=== PATIENT | female | born 1970 | race Caucasian/White ===

== ENCOUNTER 2016-08-31 20:37 | Inpatient (IN) | payer BC ==
[2016-08-31] MEDS ORDERED: methylPREDNISolone SOD SUCC 125 MG/2 ML VIAL IVP ONE (21:20)
--- NOTE | 2016-08-31 21:21 | EDPHY ---
H & P Smoking Status: Never smoked Time Seen by Provider: 08/31/16 21:07 HPI/ROS: CHIEF COMPLAINT: Blood from ostomy bag HISTORY OF PRESENT ILLNESS: This 46-year-old woman is a patient of Nael Forrester. She had a diagnosis of stage III adenocarcinoma of the colon on review of her discharge summary dated 01/22/2016. She had last chemotherapy on August 23. She is feeling relatively well today but started having blood in her ostomy bag around 1300. Since 1814 she has had about a cup in the ostomy bag. This includes blood and clots but no other areas of bleeding. Specifically no bruising or nosebleeds. Symptoms are moderate but not associated with lightheadedness dizziness or syncope or abdominal pain or nausea or vomiting. Not better worse with anything. REVIEW OF SYSTEMS: Eye: no change in vision ENT: no sore throat Cardiac: no chest pain or syncope Pulmonary: no cough or SOB Abdomen: HPI Musculoskeletal: no back pain Skin: no rash Neuro: no headache Constitutional: no fever : no urinary symptoms A comprehensive 10 point review of systems is otherwise negative aside from elements mentioned in the history of present illness. PAST MEDICAL HISTORY: History of atrial fibrillation, stage III adenocarcinoma of the colon. History of sigmoid colectomy and right sided port Social history: Nonsmoker General Appearance: Alert and conversant, cooperative. Eyes: No scleral icterus. ENT, Mouth: Normal mucous membranes. Respiratory: Normal respiratory effort, breath sounds equal, lungs are clear to auscultation. Cardiovascular: Regular rate and rhythm. Gastrointestinal: Abdomen is soft and non tender. Juan Pablo blood and clots in the ostomy bag, no rebound or guarding. Neurological: Alert and oriented x3. Normally conversant. Face symmetric, normal moveme 1 unit nt and sensation in all extremities. Skin: No bruising or purpura. Musculoskeletal: No peripheral edema and no joint swelling. Psychiatric: Not agitated. Emergency Department course/MDM: Patient says she has previous contrast reaction but has subsequently had IV contrast for imaging studies after getting Benadryl and Solu-Medrol. Plan for i-STAT creatinine and CT imaging with acute bleeding from her ostomy. Check CBC. 2199: Hematocrit 18 and hemoglobin 6 today; hematocrit 25 on 08/23. 1 unit packed red blood cells ordered, 1 platelet pack ordered for 44k and active bleeding. 2232: Discussed with Yanet gasca hospitalist. 2235: Discussed with Neelam. 2255: Discussed with Liz Ahuja. 2315: 1 unit PRBC and platelets are infusing. Patient continues to bleed into her ostomy bag. 2nd unit ordered with visible continued active bleeding into ostomy bag. Both units and platelets given in ED. (Angus Brunson) Constitutional: Initial Vital Signs Temperature (C) 36.6 C 08/31/16 20:47 Heart Rate 95 08/31/16 20:47 Blood Pressure 129/91 H 08/31/16 20:47 O2 Sat (%) 98 08/31/16 20:47 O2 Delivery Mode Room Air Allergies/Adverse Reactions: iodine Allergy (Severe, Verified 08/31/16 20:53) Hives Home Medications: Medication Instructions Recorded Allergy Medicine 08/31/16 Ferrous Sulfate 08/31/16 Medical Decision Making Consult/Admit Bed Type: [place] [id number]; serial hct, colon prep, will see in AM - Diagnostics Imaging: CT abdomen pelvis reviewed with Gato at 10:28 p.m. shows possible mesenteric vein near ostomy but no aortoenteric fistula or other source of GI bleeding. ( Angus Brunson) Differential Diagnosis: Differential considered including but not limited to aorto enteric fistula, upper GI bleed, lower GI bleed, coagulopathy, diverticulosis. (Angus Brunson) Critical Care Time: 1231AM: I attempted to order a nuclear medicine red blood cell scan however after trying to get a hold of learning technologist 4 different times and 4 different people to see when get somebody to come in and perform this study after hours at 1 o'clock in the morning I was unsuccessful in getting a technologist available. We attempted to call multiple people multiple times we did leave messages however there is no body actual on-call after a 830 p.m. and we are unable to get a hold of anybody. (Kyle Gaytan) Critical care time spent by me, Dr. Brunson, exclusively with the care of this patient was 45 minutes, exclusive of PA or GREASE MAN time and exclusive of separate procedures. The organ system at risk was gastrointestinal/hematologic and I ordered blood products including packed red blood cells and platelets, had discussion with admitting hospitalist, patient's surgeon, marketing development specialist, oncologist; to stabilize the patient and prevent worsening of the patient's condition. (Angus Brunson) - Data Points Laboratory Results: Laboratory Results 08/31/16 21:20 08/31/16 21:20 08/31/16 08/31/16 08/31/16 21:30 21:20 21:20 WBC RBC Hgb POC Hgb 6.1 gm/dL L gm/dL (12.3-15.9) Hct POC Hct 18 % L % (35.5-47.5) MCV MCH MCHC RDW Plt Count MPV Neut % (Auto) Lymph % (Auto) Churchill % (Auto) Eos % (Auto) Baso % (Auto) Nucleat RBC Rel Count Absolute Neuts (auto) Absolute Lymphs (auto) Absolute Monos (auto) Absolute Eos (auto) Absolute Basos (auto) Absolute Nucleated RBC Immature Gran % Immature Gran # Platelet Estimate Hypochromasia Tear Drop Cells Oval Macrocytes Smear Review By PT INR APTT POC Sodium 141 mEq/L mEq/L (134-144) Sodium 137 mEq/L mEq/L (134-144) POC Potassium 3.4 mEq/L mEq/L (3.3-5.0) Potassium 3.4 mEq/L L mEq/L (3.5-5.2) POC Chloride 108 mEq/L mEq/L (96-108) Chloride 108 mEq/L mEq/L (97-110) Carbon Dioxide 21 mEq/l L mEq/l (22-31) Anion Gap 8 mEq/L mEq/L (8-16) POC BUN 20 mg/dL mg/dL (7-23) BUN 21 mg/dL mg/dL (7-23) Creatinine 0.5 mg/dL L mg/dL (0.6-1.0) POC Creatinine 0.5 mg/dL L mg/dL (0.6-1.2) Estimated GFR > 60 Glucose 102 mg/dL H mg/dL (70-100) POC Glucose 107 mg/dL H mg/dL (70-100) Calcium 8.8 mg/dL mg/dL (8.5-10.4) Patient ABO/Rh A POSITIVE Antibody Screen NEGATIVE Crossmatch IS Only See Detail 08/31/16 08/31/16 21:20 21:20 WBC 3.37 10^3/uL L 10^3/uL (3.80-9.50) RBC 1.76 10^6/uL L 10^6/uL (4.18-5.33) Hgb 6.7 g/dL L g/dL (12.6-16.3) POC Hgb Hct 18.4 % L % (38.0-47.0) POC Hct MCV 104.5 fL H fL (81.5-99.8) MCH 38.1 pg H pg (27.9-34.1) MCHC 36.4 g/dL g/dL (32.4-36.7) RDW 15.0 % % (11.5-15.2) Plt Count 44 10^3/uL L 10^3/uL (150-400) MPV 9.8 fL fL (8.7-11.7) Neut % (Auto) 58.1 % % (39.3-74.2) Lymph % (Auto) 31.5 % % (15.0-45.0) Churchill % (Auto) 5.9 % % (4.5-13.0) Eos % (Auto) 2.7 % % (0.6-7.6) Baso % (Auto) 0.6 % % (0.3-1.7) Nucleat RBC Rel Count 0.6 % H % (0.0-0.2) Absolute Neuts (auto) 1.96 10^3/uL 10^3/uL (1.70-6.50) Absolute Lymphs (auto) 1.06 10^3/uL 10^3/uL (1.00-3.00) Absolute Monos (auto) 0.20 10^3/uL L 10^3/uL (0.30-0.80) Absolute Eos (auto) 0.09 10^3/uL 10^3/uL (0.03-0.40) Absolute Basos (auto) 0.02 10^3/uL 10^3/uL (0.02-0.10) Absolute Nucleated RBC 0.02 10^3/uL H 10^3/uL (0-0.01) Immature Gran % 1.2 % H % (0.0-1.1) Immature Gran # 0.04 10^3/uL 10^3/uL (0.00-0.10) Platelet Estimate DECREASED L (ADEQ) Hypochromasia 1+ H Tear Drop Cells 1+ H Oval Macrocytes 1+ H Smear Review By Pending PT 15.6 SEC H SEC (12.0-15.0) INR 1.24 H (0.83-1.16) APTT 34.1 SEC SEC (23.0-38.0) POC Sodium Sodium POC Potassium Potassium POC Chloride Chloride Carbon Dioxide Anion Gap POC BUN BUN Creatinine POC Creatinine Estimated GFR Glucose POC Glucose Calcium Patient ABO/Rh Antibody Screen Crossmatch IS Only Medications Given: Discontinued Medications Diphenhydramine HCl (Benadryl Injection) 50 mg IVP EDNOW ONE Stop: 08/31/16 21:21 Last Admin: 08/31/16 21:45 Dose: 50 mg Methylprednisolone Sodium Succinate (Solu-Medrol) 125 mg IVP EDNOW ONE Stop: 08/31/16 21:21 Last Admin: 08/31/16 21:45 Dose: 125 mg Point of Care Test Results: 08/31/16 21:30 POC Sodium 141 POC Potassium 3.4 POC Chloride 108 POC BUN 20 POC Creatinine 0.5 L POC Glucose 107 H Departure - Departure Disposition: [facility] Inpatient Acute Clinical Impression: Acute lower GI bleeding Anemia Qualifiers: Anemia type: unspecified type Qualified Code(s): D64.9 - Anemia, unspecified Condition: Serious
[2016-08-31] MEDS ORDERED: IOPAMIDOL (ISOVUE-300) 100 ML BTL IV ONE (21:41)
[2016-08-31 21:46] LABS: % IMMATURE GRANULYOCYTES 1.2 % (0.0-1.1); ABSOLUTE IMMATURE GRANULOCYTES 0.04 10^3/uL (0.00-0.10); ABSOLUTE NRBC COUNT 0.02 10^3/uL (0-0.01); ADD DIFF? NO; ADD MORPH? YES; ADD SCAN? NO; ATYPICAL LYMPHOCYTE FLAG 60 (0-99); FRAGMENT RBC FLAG 0 (0-99); HEMATOCRIT 18.4 % (38.0-47.0); LEFT SHIFT FLG 0 (0-99); LIPEMIA HEMOLYSIS FLAG 90 (0-99); MEAN CELL HEMOGLOBIN 38.1 pg (27.9-34.1); MEAN CELL HEMOGLOBIN CONCENTR. 36.4 g/dL (32.4-36.7); MEAN CELL VOLUME 104.5 fL (81.5-99.8); MEAN PLATELET VOLUME 9.8 fL (8.7-11.7); NRBC-AUTO% 0.6 % (0.0-0.2); PLATELET CLUMPS FLAG 20 (0-99); RED BLOOD CELL COUNT 1.76 10^6/uL (4.18-5.33)
[2016-08-31 21:49] LABS: HEMOGLOBIN 6.7 g/dL (12.6-16.3); PLATELET COUNT 44 10^3/uL (150-400)
[2016-08-31 21:52] LABS: INR 1.24 (0.83-1.16); PROTIME(PATIENT) 15.6 SEC (12.0-15.0)
[2016-08-31 21:53] LABS: APTT 34.1 SEC (23.0-38.0)
[2016-08-31 21:57] LABS: ANION GAP 8 mEq/L (8-16); CALCIUM 8.8 mg/dL (8.5-10.4); CARBON DIOXIDE 21 mEq/l (22-31); CHLORIDE 108 mEq/L (97-110); CREATININE 0.5 mg/dL (0.6-1.0); GLOMERULAR FILTRATION RATE > 60; GLUCOSE 102 mg/dL (70-100); POTASSIUM 3.4 mEq/L (3.5-5.2); SODIUM 137 mEq/L (134-144)
[2016-08-31 22:25] LABS: PLATELET ESTIMATE DECREASED (ADEQ)
[2016-08-31 22:26] LABS: HYPOCHROMIA 1+; MACROCYTES 1+
[2016-08-31] MEDS ORDERED: NS 1,000 ML IV SCH (23:45)
[2016-08-31] MEDS ORDERED: ONDANSETRON 4 MG/2 ML VIAL IVP PRN (23:52)
[2016-08-31] MEDS ORDERED: ACETAMINOPHEN 325 MG TAB PO PRN (23:52)
[2016-08-31] MEDS ORDERED: HYDROmorphONE/DILAUDID 1 MG/ML SYR IVP PRN (23:52)
[2016-08-31] MEDS ORDERED: ONDANSETRON DISINTEGRATING 4 MG TAB PO PRN (23:52)
[2016-08-31] MEDS ORDERED: PROMETHAZINE HCL 25 MG/ML INJ IVP PRN (23:52)
[2016-08-31] MEDS ORDERED: oxyCODONE IR 5 MG TAB PO PRN (23:52)
[2016-08-31] MEDS ORDERED: LORazepam 2 MG/ML INJ IVP PRN (23:52)
--- NOTE | 2016-09-01 01:06 | GCON ---
[f rep st] CONSULTATION HISTORY OF PRESENT ILLNESS: This is a 46-year-old, who presents to the hospital after having a GI bleed, maroon-colored blood out of the ostomy since about 5 or 6 o'clock this evening. The patient is known to me from previous colon resection for an obstructing sigmoid colon cancer, complicated by anastomotic leak, need for diverting loop ostomy. She has undergone 12 cycles of FOLFOX. Most current hemoglobin is 6.7. She is pancytopenic with a white blood cell count of 3.37 and a platelet count of 44. Other indices show BUN of 21 and creatinine of 0.5, which does not indicate an upper GI bleed. Potassium is 3.4, sodium is 137, chloride is 108, bicarb is 21, mildly acidotic. The patient feels well. She has not had any specific complaints except for mild anorexia, neuropathy, which are side effects from her chemotherapy medications. She is currently on FOLFOX and is tolerating that well. She has a Port-A-Cath placed in her right upper chest which is being used for chemotherapy. CT scan today, personally reviewed with Dr. Hoskins, demonstrates prominent mesenteric vessels and possible inflammation around the gallbladder as well as fluid in the pelvis without hounsfeld units suggestive of blood. PMSFH: reviewed unchanged from prior ROS significant for blood all others reviewed and negative PHYSICAL EXAMINATION: GENERAL: She is alert, oriented to person, place, and time. HEENT: Sclerae anicteric. Oropharynx is moist. LUNGS: Clear. HEART: Regular heart tones. ABDOMEN: Softly distended. Normoactive bowel sounds. She has blood, which is clotting now, in her ostomy bag. She emptied approximately 200 mL since she has been here in the emergency room. She has received 1 unit of packed red blood cells and 1 unit of platelets. EXTREMITIES : Without edema. She has neuropathy but adequate distal revascularization. SKIN: She has no rashes. IMPRESSION AND PLAN: Gastrointestinal bleed. Thrombocytopenia . Unsure of the source. Recommend endoscopy tagged red blood cell scan if unavailable. I have discussed this with Dr. Holt. I will follow up with her in the morning. If the patient has continued bleeding and tagged cell scan is not informative, endoscopy should be performed to ensure there is no active source of bleeding that can be controlled by endoscopic means. As for surgery, no surgery at this point until the patient is resuscitated with plts and pRBCs. The patient has been informed of the risks, benefits, and alternatives. All questions were addressed. /[id number]/MODL MTDD
[2016-09-01 02:12] LABS: % IMMATURE GRANULYOCYTES 1.3 % (0.0-1.1); ABSOLUTE IMMATURE GRANULOCYTES 0.03 10^3/uL (0.00-0.10); ADD DIFF? NO; ADD MORPH? NO; ADD SCAN? NO; ATYPICAL LYMPHOCYTE FLAG 30 (0-99); FRAGMENT RBC FLAG 0 (0-99); HEMOGLOBIN 8.4 g/dL (12.6-16.3); LEFT SHIFT FLG 0 (0-99); LIPEMIA HEMOLYSIS FLAG 90 (0-99); MEAN CELL HEMOGLOBIN 35.4 pg (27.9-34.1); MEAN CELL HEMOGLOBIN CONCENTR. 36.5 g/dL (32.4-36.7); MEAN PLATELET VOLUME 8.9 fL (8.7-11.7); PLATELET CLUMPS FLAG 0 (0-99); PLATELET COUNT 56 10^3/uL (150-400); RED BLOOD CELL COUNT 2.37 10^6/uL (4.18-5.33); RED CELL DISTRIBUTION WIDTH 16.4 % (11.5-15.2)
[2016-09-01] MEDS ORDERED: METOCLOPRAMIDE 10 MG/2 ML VIAL IVP PRN (02:55)
[2016-09-01] MEDS ORDERED: GOLYTELY 4000 ML BTL PO ONE ×2 (02:55→02:56)
--- NOTE | 2016-09-01 03:57 | GHP ---
[f rep st] HISTORY AND PHYSICAL DATE OF ADMISSION: 08/31/2016 CHIEF COMPLAINT: Bleeding into her ostomy. HISTORY: This is a 46-year-old female with a past medical history of stage III adenocarcinoma of th e colon status post partial colectomy with postoperative course complicated by anastomotic breakdown requiring resection and colostomy placement, who presents after noting that she has been passing la rge amounts of blood and blood clots into her ostomy over the last day. She notes despite that, she has felt quite well in the last 24-48 hours; in fact, better than she has felt in a long time. She recently completed chemotherapy on August 23 and has been recovering from that. She notes she has had some issues with peripheral neuropathy and generalized fatigue and weakness, but this actual ly has been better in the last couple of days. She denies any lightheadedness or dizziness. She de nies any abdominal pain or cramping. She does not take routinely aspirin or NSAIDs. She does not h ave a history of GERD. She notes she has at least emptied 1-1/2 ostomy bags full of blood prior to coming to the ER and another one since arrival. This has never happened in the past. PAST MEDICAL HISTORY: 1. Stage IIIC adenocarcinoma of the colon diagnosed in November of 2015 when patient presented with bow el obstruction. Patient is status post surgical intervention, as well as chemotherapy. 2. Paroxysmal AFib with RVR. 3. Chronic anemia. 4. History of peritonitis and sepsis status post anastomotic leak and fecal peritonitis. 5. Migraine. 6. Peripheral neuropathy. 7. Thrush. PAST SURGICAL HISTORY: 1. Partial colectomy. 2. Anastomotic leak resection and colostomy placement. 3. Orthopedic surgeries. FAMILY HISTORY: Father with metastatic colon cancer. SOCIAL HISTORY: Patient is . She has 3 children. She is originally from [place]. She cesilia es alcohol or tobacco use. REVIEW OF SYSTEMS: 10-point review of systems obtained and negative, except as per HPI. HOME MEDICATIONS: Iron and an allergy medication. ALLERGIES: Iodine. PHYSICAL EXAMINATION: VITAL SIGNS: BP 124/88, heart rate 85, respiratory rate 16, O2 sat is 97% on room air. Temperature is 36.8. GENERAL APPEARANCE: Well-developed/well-nourished female. She is awake and alert. She is in no acute distress. EYES: Anicteric. HEENT: Oropharynx clear. CARDI OVASCULAR: RRR, no MRG. PULMONARY: CTA bilaterally to anterior exam. ABDOMEN: Soft, nontender, bowel sounds present, ostomy bag in the left middle quadrant is full of what appears to be brown sto ol. EXTREMITIES: No clubbing, cyanosis, or edema. SKIN: Warm, dry, well perfused. NEURO/PSYCH: Oriented and appropriate, pleasant. CLINICAL DATA: Labs reviewed. Significant for a white blood cell count of 3.37, hemoglobin of 6.7, hematocrit of 18.4, platelets of 44. INR is 1.2. Chemistry notable for a potassium of 3.4, creati nine is 0.5. Abdominal CT shows question of a mesenteric vessel extending into the ostomy, as well as what is lik betty small metastatic deposit in the right lobe of the liver. Interval development of gallbladder wa ll thickening and pericholecystic fluid and mild splenomegaly and small amount of ascites. ASSESSMENT/PLAN: This is a 46-year-old female with past medical history of stage III adenocarcinoma of the colon, presenting with gastrointestinal bleed. 1. Gastrointestinal bleed. Unclear source, but patient is passing what appears to be bright red bl ood from her colostomy. Dr. Richter of General Surgery has been consulted and has evaluated the pat ient in the ER. He recommends a tagged red blood cell study, as well as endoscopy. GI also has bee elisa consulted with plans for likely upper and lower endoscopy in the morning. She has been transfused 2 units of packed red blood cells. The bleeding does seem to have slowed down by the appearance of the stool in her ostomy bag most recently. 2. Acute blood loss anemia in the setting of above. Again, status post transfusion of 2 units. H and H are being trended. 3. Stage III adenocarcinoma of the colon. Again, patient recently completed chemotherapy with 12 c ycles of FOLFOX. She has also undergone surgical resection. She is followed by Dr. Forrester, as court dowell as her surgeon, Dr. Richter. Oncology is aware of her admission and will see her while in-house. 4. Hypokalemia. Will replete. 5. Pericholecystic fluid without any right upper quadrant pain or signs and symptoms of cholecystit is. We will check liver function panel in the morning. 6. History of atrial fibrillation. Monitoring on telemetry. Currently in sinus rhythm. 7. Disposition. Inpatient status. Patient is presenting with high-risk initial complaints of pablito re anemia requiring urgent evaluation and possible surgical intervention. The patient is new to my care. Old records reviewed and summarized as per HPI and past medical hist ory. Care plan reviewed with ER physician, Dr. Richter of General Surgery. /[id number]/MODL
[2016-09-01 06:15] LABS: % IMMATURE GRANULYOCYTES 0.5 % (0.0-1.1); ABSOLUTE IMMATURE GRANULOCYTES 0.01 10^3/uL (0.00-0.10); ADD DIFF? NO; ADD MORPH? NO; ADD SCAN? NO; ATYPICAL LYMPHOCYTE FLAG 20 (0-99); FRAGMENT RBC FLAG 0 (0-99); HEMATOCRIT 23.9 % (38.0-47.0); HEMOGLOBIN 8.8 g/dL (12.6-16.3); LEFT SHIFT FLG 0 (0-99); LIPEMIA HEMOLYSIS FLAG 90 (0-99); MEAN CELL HEMOGLOBIN 36.2 pg (27.9-34.1); MEAN CELL HEMOGLOBIN CONCENTR. 36.8 g/dL (32.4-36.7); MEAN CELL VOLUME 98.4 fL (81.5-99.8); MEAN PLATELET VOLUME 9.8 fL (8.7-11.7); PLATELET CLUMPS FLAG 10 (0-99); PLATELET COUNT 59 10^3/uL (150-400); RED BLOOD CELL COUNT 2.43 10^6/uL (4.18-5.33); RED CELL DISTRIBUTION WIDTH 16.7 % (11.5-15.2)
[2016-09-01 06:25] LABS: ALANINE AMINOTRANSFERASE 51 IU/L (9-52); ALBUMIN 3.3 g/dL (3.5-5.0); ALKALINE PHOSPHATASE 75 IU/L (38-126); ANION GAP 6 mEq/L (8-16); ASPARTATE AMINOTRANSFERASE 62 IU/L (14-46); BILIRUBIN-CONJUGATED 0.7 mg/dL (0.0-0.5); BILIRUBIN-UNCONJUGATED 3.3 mg/dL (0.0-1.1); CALCIUM 8.8 mg/dL (8.5-10.4); CARBON DIOXIDE 21 mEq/l (22-31); CHLORIDE 112 mEq/L (97-110); CREATININE 0.5 mg/dL (0.6-1.0); GLOMERULAR FILTRATION RATE > 60; GLUCOSE 154 mg/dL (70-100); MAGNESIUM 1.6 mg/dL (1.6-2.3); POTASSIUM 3.7 mEq/L (3.5-5.2); SODIUM 139 mEq/L (134-144); TOTAL PROTEIN 5.9 g/dL (6.3-8.2)
[2016-09-01 12:05] VITALS: RESP 16
[2016-09-01] MEDS ORDERED: MIDAZOLAM 2 MG/2 ML VIAL ONE ×3 (14:58→15:49)
[2016-09-01] MEDS ORDERED: fentaNYL 100 MCG/2 ML INJ ONE ×3 (14:58→15:33)
--- NOTE | 2016-09-01 16:23 | GCON ---
[f rep st] CONSULTATION GI INPATIENT CONSULTATION. DATE OF CONSULTATION: 09/01/2016 I was kindly requested to see patient by Dr. Angus Brunson in consultation for chief complaint of gastrointestinal bleeding. She is a 46-year-old, white female, who began to have the above yesterday. She had bright red blood in her ostomy bag. There were also some clots. With the above, she denies abdominal pain, nausea, vomiting, weakness. She presented to the emergency department, was found to have a hematocrit of 18.4%, and was admitted to the hospital. She has a history of colon cancer with surgical resection for this in 2016. This was complicated by an anastomotic leak, peritonitis, and a prolonged hospital stay, with further surgeries, etc. She has a colostomy. She has a father who had metastatic colon cancer. She has 3 children. She recently had chemotherapy. She has used some Aleve after chemotherapy. PAST MEDICAL HISTORY: 1. As above. 2. History of atrial fibrillation related to hospitalization. 3. Otherwise, noncontributory. OUTPATIENT MEDICATIONS: Include the above. INPATIENT MEDICATIONS: Include receiving some blood. ALLERGIES: Include iodine. SOCIAL HISTORY: She is . Her 's name is David, telephone #. FAMILY HISTORY: As above. REVIEW OF SYSTEMS: Positive pertinent review of systems as per my HPI;otherwise , a complete review of systems is negative. PHYSICAL EXAM: CONSTITUTIONAL: Nontoxic-appearing, pleasant woman. SKIN: Warm, dry. HEENT: Eyes: Pupils equal, round, reactive to light and accommodation. Ear, nose, mouth and throat: Oropharynx without masses, moist mucosa. CARDIOVASCULAR: Normal S2, normal PMI. RESPIRATORY: Pulmonary clear to auscultation and percussion anteriorly. LUNGS: Clear to auscultation and percussion anteriorly. GASTROINTESTINAL: Stoma in place. ABDOMEN: Soft. NEUROLOGIC: Grossly nonfocal, with cranial nerves grossly intact. PSYCHIATRIC : Orientation, insight appropriate. MUSCULOSKELETAL: Strength grossly normal throughout, normal station. LABORATORIES: Include a CT of the abdomen and pelvis with IV contrast which shows a probable mesenteric vein extending into the ostomy, increased in size from prior scans. Small amount of ascites. AST 62, with a total bilirubin of 4 , almost all unconjugated. Prothrombin time 15.6 with an INR 1.24. White count on admission 3.37, today 1.94. Hematocrit 18.4%. Now, after blood, 23%, and 23.9% over the last 2 values. Platelet count on admission, 44,000. After 10 units of random donor platelets, 59,000. Normal electrolytes. RBC scan pending. ASSESSMENT: Gastrointestinal bleeding. Almost certainly lower in source. Suspect either from her ostomy or her remaining colon. A brisk upper GI bleed mimicking a lower bleed is possible, especially with her quite low hematocrit, NSAID use and that she only has a partial amount of colon, but less likely. PLAN: 1. Colon prep. 2. Upper endoscopy, colonoscopy via the ostomy at the same sitting. 3. Serial hematocrits, transfuse blood as needed. 4. Of note, suspect her elevated unconjugated bilirubin is either Gilbert's syndrome or due to hemolysis only. 5. In the future, as an outpatient, I will arrange for her to see Dr. Kelvin Sandoval, a specialist in hereditary colon cancer syndromes, considering her young age, her father's history, and that she has 3 children. 6. Otherwise, further management depending on the above. Thank you for allowing me to help in the care of this patient. /[id number]/MODL MTDD
[2016-09-01] MEDS ORDERED: PANTOPRAZOLE SODIUM 40 MG TAB PO SCH (16:30)
[2016-09-01 17:10] VITALS: BP 108/64; PULSE 80; TEMP 98.4; O2SAT 95
--- NOTE | 2016-09-01 17:22 | GPN ---
[f rep st] PROCEDURE NOTE DATE OF PROCEDURE: 09/01/2016 PROCEDURES: Upper endoscopy with biopsy, colonoscopy with ablation. INDICATIONS AND PRE-PROCEDURE DIAGNOSIS: Gastrointestinal bleeding. POSTPROCEDURE DIAGNOSES: 1. Upper endoscopy. Normal, except for some superficial duodenal erosions, friable. Doubt the cause of her bleeding. 2. Colonoscopy via her ostomy. a. 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 Eradicated with argon and BICAP therapy. No further active bleeding otherwise. PREMEDICATION: Fentanyl 250 mcg IV, fentanyl 9 mg IV. Of note, the time from IV sedation until procedure end was 46 minutes. COMPLICATIONS: None. FINDINGS: After informed consent was obtained, the patient was placed in left lateral decubitus position. Video upper endoscope was placed under direct visualization and advanced. Esophagus was normal. Stomach was normal. Duodenal bulb and 1st portion had some superficial erosions, approximately 0.5 cm in size, with some friability. However, no active bleeding. Biopsies done of the antrum and cardia of the stomach for H pylori. The patient's gurney was then turned around. A digital exam was done of her ostomy with my pinky and index finger. The initial 2 cm of her ostomy is normal. Then, there is a mild- to-moderate stricture. This was dilated with my pinky and index finger. Then, a pediatric colonoscope was placed via the ostomy and advanced. There was only mild resistance going by this stricture. The colonoscope was advanced to the cecum, where the ileocecal valve was seen. In the cecum, there were the above AVMs. There was some oozing of blood. These were treated with a combination of argon plasma coagulation, set at the recommended right colon settings on ERBE , approximately 10 pulses, several seconds each. Then, a 7-Yi BICAP probe was used, to treat the residual angioectasias, again using the recommended setting on ERBE, approximately another 10 pulses, several seconds each. Good eradication was seen, with no active bleeding at the procedure's end. Upon slow withdrawal, no other abnormalities or blood was seen. Of note, no vascular or venous abnormalities were seen at the ostomy, such as a mesenteric vein, etc. IMPRESSION: I suspect her gastrointestinal bleeding was almost certainly due to the above cecal arteriovenous malformations. In turn, suspect this was exacerbated by her low platelet count. Eradicated as above. No further bleeding, and relatively low risk of significant repeat bleeding. PLAN: 1. Will let her eat. 2. Buff cap IV. 3. Please see other recommendations in my consult note from today. 4. Will place her on a proton pump inhibitor daily. From a GI standpoint, okay to discharge home. Upon discharge, would recommend: 1. A generic proton pump inhibitor for 1 month. Okay to continue using Aleve post chemotherapy, if she wishes, but she also could try Tylenol, narcotic as needed, etc. 2. Follow up with Oncology. While she has a low platelet count in a post chemotherapy state, she may have some return of oozing from these AVMs in the future. If so, I would recommend outpatient transfusion of blood as needed. 3. Would recommend iron replacement therapy long-term. I will sign off. I will follow up on her biopsies for H pylori, but suspect will be negative. Otherwise, please let me know if I can be of further help in the future. /[id number]/MODL MTDD
--- NOTE | 2016-09-01 18:07 | PDDCSUM ---
Discharge Summary Discharge Summary: DISCHARGE SUMMARY FOLLOW-UP ITEMS: CBC on 09/05/2016 DATE OF ADMISSION: 09/01/2016 DATE OF DISCHARGE: 09/01/2016 DISCHARGE DIAGNOSES: 1. Acute lower gastrointestinal hemorrhage 2. Acute blood loss anemia 3. Cecal arteriovenous malformation 4. Pancytopenia secondary to chemotherapy 5. Adenocarcinoma of the colon 6. Suspected Gilbert's syndrome CONSULTATIONS: Gastroenterology PROCEDURES / IMAGING: Endoscopy by Dr. Ambrose CHIEF COMPLAINT: Acute blood in ostomy bag SUBJECTIVE: Patient is feeling well at time of discharge, she is requesting to be discharged home at this time PHYSICAL EXAM ON DISCHARGE: Systolic blood pressure 120, heart rate 80s, afebrile, satting well on room air , abdomen is soft nontender nondistended, bowel sounds are present, ostomy bag demonstrates no bloody material LABS ON DISCHARGE: Hemoglobin 8.8, platelet count 19459, MCV 98, creatinine 0.5, total bilirubin 4 HOSPITAL COURSE BY PROBLEM: 1. Acute lower gastrointestinal hemorrhage. Patient presented with a GI bleed from the cecum resulting in anemia. She required transfusion of red blood cells. This is stabilized with intervention as outlined below. She should remain on oral iron therapy as an outpatient, increase to twice daily. 2. Acute blood-loss anemia. Evidenced by hemoglobin level of 6.7 in the setting of GI blood loss. She received 2 units of packed red blood cells. Discharge hemoglobin level is 8.8. 3. Cecal arterial venous malformation. The patient underwent endoscopy by Dr. Ambrose, he noted numerous bleeding cecal AVMs, the bleeding was stopped with argon. These AVMs most likely bleeding in the setting of thrombocytopenia. He has recommended a proton pump inhibitor x1 month. He is also recommended discontinuing use of Aleve but if patient does require this after chemotherapy the risks may be worth the potential benefit. Recommend attempting use of Tylenol in lieu of this medication. He also recommends that the patient have a repeat CBC an outpatient platelet monitoring through [facility] with transfusions if needed if there is notable bleeding after subsequent chemotherapy rounds. 4. Pancytopenia secondary to chemotherapy. This is the cause of patient's thrombocytopenia. Her platelet count should be monitored as outpatient. Transfuse platelets as needed if evidence of bleeding. 5. Suspected Gilbert syndrome. Hyperbilirubinemia, no evidence of biliary distention on CT of the abdomen. DISCHARGE MEDICATIONS: Please see official discharge medication reconciliation sheet in chart , iron twice daily, pantoprazole 40 mg once daily. DISCHARGE INSTRUCTIONS: Please follow up with Dr. Sandoval in the next several weeks and have repeat CBC performed next Monday with results to Dr. Forrester.
--- NOTE | 2016-09-01 19:19 | GCON ---
[f rep st] CONSULTATION ONCOLOGY CONSULTATION NOTE HISTORY OF PRESENT ILLNESS: The patient is a very pleasant 46-year-old female who was diagnosed wit h a stage IIIC (T3 N2b) adenocarcinoma of the sigmoid colon in December of 2015. She presented with abdo javier pain and on presentation had a spiculated lesion in the sigmoid colon. She underwent resection and had perforation to the subserosal adipose tissue and also had lymphovascular invasion as well a s perineural invasion. 12 of 14 lymph nodes were involved. There was no evidence of distant metastas es. The patient is followed by Dr. Forrester and just completed a full 12 cycles of adjuvant FOLFOX with t he last treatment being done on August 23. The treatment was complicated by neuropathy. The joe ent presented to the emergency room this morning after passing large amounts of blood and clot into her ostomy. She denied any lightheadedness or dizziness. She does not take aspirin or NSAIDs. She em ptied at least 1-1/2 ostomy bags full of blood prior to her arrival in the ER at 3 a.m. Hemoglobin h as been running around 9 or 10 in the last few months of chemotherapy. When she presented to the ER, hemoglobin was 6.7. She was transfused, and this morning the hemoglobin was up to 8.8. Also of note , her white blood cell count was 1.94, 56% neutrophils, with an absolute neutrophil count of 1.6. Pl atelet count is 59,000. The patient did receive Neulasta on August 25. The patient was seen in consultation by Dr. Luis Richter, as well as Dr. Ambrose. She is just returning from the endoscopy suite, and is very sleepy. She denies any new symptoms. PAST MEDICAL HISTORY: 1. History of intermittent atrial fibrillation. 2. Chemotherapy-induced anemia. 3. History of peritonitis and sepsis, status post anastomotic leak and fecal peritonitis. 4. Migraine. 5. Peripheral neuropathy. PAST SURGICAL HISTORY: 1. Partial colectomy. 2. Repair of anastomotic leak with diverting colostomy. SOCIAL HISTORY: She does not smoke or drink. She is employed and works in retail sales. FAMILY HISTORY: Notable for her father having metastatic colon cancer. REVIEW OF SYSTEMS: Unable to be obtained as the patient is very sedated. PHYSICAL EXAMINATION: GENERAL: She is quite sleepy-appearing, but appears comfortable. VITAL SIGNS: Blood pressure 130/88, heart rate 75, O2 saturation 99% on room air. She is afebrile. HEENT: Pupils equal. Sclerae anicteric. LUNGS: Clear anteriorly. HEART: Regular rate. ABDOMEN: Soft, nontender. S he has an ostomy bag. EXTREMITIES: No edema. LABORATORY DATA: Hemoglobin 8.8, platelets 59. INR 1.2, PTT 34. Comprehensive metabolic panel unrem arkable other than bilirubin of 4.0, with conjugated bilirubin of 0.7. IMPRESSION: 1. This is a 46-year-old female with history of stage IIIC adenocarcinoma of the colon who has just recently completed 12 cycles of adjuvant FOLFOX. She is currently day 11 cycle 12. She presents wit h a lower gastrointestinal bleed and has just undergone endoscopy with Dr. Ambrose. I am not aware of t he results at this time. She is hemodynamically stable. While she has pancytopenia likely related to the chemotherapy, in part, her current platelet count is 59,000. There is no indication at this hank e for platelet transfusion. While she has leukopenia, she is not absolutely neutropenic and did rece russ Mann. 2. I will continue to follow along with you. /[id number]/MODL
== END 2016-09-01 18:05 | disposition home or self-care (01) | DRG 299 ==
LOC: F3E 09-01 13:20
PROVIDERS: ADMIT Internal Medicine; ATTEND Internal Medicine
PROC: 30233N1 Transfusion of Nonautologous Red Blood Cells into Peripheral Vein, Percutaneous Approach (ICD-10-PCS; 2016-08-31)
PROC: 30233R1 Transfusion of Nonautologous Platelets into Peripheral Vein, Percutaneous Approach (ICD-10-PCS; 2016-08-31)
PROC: 0W3P8ZZ Control Bleeding in Gastrointestinal Tract, Via Natural or Artificial Opening Endoscopic (ICD-10-PCS; principal; 2016-09-01 15:00)
DX: Q27.33 Arteriovenous malformation of digestive system vessel (principal); D61.810 Antineoplastic chemotherapy induced pancytopenia; K92.2 Gastrointestinal hemorrhage, unspecified; D62 Acute posthemorrhagic anemia; C18.7 Malignant neoplasm of sigmoid colon; E87.6 Hypokalemia; I48.91 Unspecified atrial fibrillation; E80.4 Gilbert syndrome; G62.9 Polyneuropathy, unspecified; Z93.3 Colostomy status
CPT/HCPCS: 82947-QW; 96374; J1200; J2250; J3010; P9016; P9035; Q9967

== ENCOUNTER 2016-10-11 10:16 | Inpatient (IN) | payer BC ==
[2016-10-11] MEDS ORDERED: ERTAPENEM 1 GM in NS 100 ML IV ONE (11:45)
[2016-10-11] MEDS ORDERED: fentaNYL 100 MCG/2 ML INJ ONE ×3 (11:51→16:52)
[2016-10-11] MEDS ORDERED: DEXAMETHASONE 4 MG/ML VIAL ONE (11:51)
[2016-10-11] MEDS ORDERED: ROCURONIUM 50 MG/5 ML VIAL ONE ×2 (11:51→11:53)
[2016-10-11] MEDS ORDERED: LIDOCAINE 2% 5 ML SDV ONE (11:51)
[2016-10-11] MEDS ORDERED: ONDANSETRON 4 MG/2 ML VIAL ONE (11:51)
[2016-10-11] MEDS ORDERED: KETOROLAC 30 MG/1 ML SDV ONE (11:51)
[2016-10-11] MEDS ORDERED: PROPOFOL 200 MG/20 ML VIAL ONE (11:53)
[2016-10-11] MEDS ORDERED: BUPIVACAINE 0.5% 30 ML SDV ONE (12:44)
[2016-10-11] MEDS ORDERED: HYDROmorphONE/DILAUDID 2 MG/ML INJ ONE (13:49)
[2016-10-11 14:25] LABS: HEMATOCRIT 26.1 % (38.0-47.0); HEMOGLOBIN 8.7 g/dL (12.6-16.3)
[2016-10-11] MEDS ORDERED: SUGAMMADEX SODIUM 200 MG/2 ML VIAL IVP ONE ×2 (15:35→15:45)
[2016-10-11] MEDS ORDERED: SUGAMMADEX SODIUM 500 MG/5 ML VIAL IVP ONE (15:46)
[2016-10-11] MEDS ORDERED: ONDANSETRON 4 MG/2 ML VIAL IVP PRN (16:02)
--- NOTE | 2016-10-11 16:02 | POSTOPPROG ---
Post Op Note Date of Operation: 10/11/16 Surgeon: Luis Richter Advanced Registered Nurse: Dean Ahuja Anesthesia: GET(General Endotracheal) Pre-op Diagnosis: Colon ca -colostomy Post-op Diagnosis: same Procedure: Colostomy takedown Findings: Dense adhesiona Inf/Abcess present in the surg proc area at time of surgery?: No EBL: 500-1000 Total fluids administered: 1.5L Complications: none Specimen(s): colostomy
[2016-10-11] MEDS ORDERED: HYDROmorphONE/DILAUDID 1 MG/ML SYR ONE (16:52)
[2016-10-11] MEDS: KETOROLAC 15 MG/1 ML SDV IVP SCH ×2 (17:56→23:37)
[2016-10-11] MEDS: D5W 1/2 NS W/ 20 KCl/L 1,000 ML IV SCH ×2 (17:59→23:37)
[2016-10-11] MEDS: GABAPENTIN 300 MG CAP PO SCH ×2 (19:09→21:31)
[2016-10-12 05:29] LABS: HEMATOCRIT 18.8 % (38.0-47.0)
[2016-10-12 05:31] LABS: ANION GAP 5 mEq/L (8-16); CARBON DIOXIDE 21 mEq/l (22-31); CHLORIDE 111 mEq/L (97-110); CREATININE 0.5 mg/dL (0.6-1.0); GLOMERULAR FILTRATION RATE > 60; GLUCOSE 110 mg/dL (70-100); POTASSIUM 4.3 mEq/L (3.5-5.2); SODIUM 137 mEq/L (134-144)
[2016-10-12 06:00] LABS: HEMOGLOBIN 6.3 g/dL (12.6-16.3)
[2016-10-12] MEDS: KETOROLAC 15 MG/1 ML SDV IVP SCH ×4 (06:17→22:53)
--- NOTE | 2016-10-12 07:27 | GOP ---
[f rep st] OPERATIVE REPORT DATE OF OPERATION: SURGEON: Luis Richter MD FINISHING SUPERVISOR PLASTIC SHEETS: Dean Ahuja MD. ANESTHESIA: General endotracheal anesthesia is used. ANESTHESIOLOGIST: West Gray MD PREOPERATIVE DIAGNOSIS: Colon cancer, colostomy and Port-A-Cath. POSTOPERATIVE DIAGNOSIS: Colon cancer, colostomy and Port-A-Cath. PROCEDURE PERFORMED: Removal of right chest Port-A-Cath, colostomy takedown with end-to-end descend ing colon to rectal anastomosis and splenic flexure takedown, extensive lysis of adhesions. FINDINGS: SPECIMENS: Colostomy to permanent pathology. ESTIMATED BLOOD LOSS: Approximately 800 cc. INDICATIONS: This is a 46-year-old woman with a history of colon cancer, status post colectomy with leak and need for diverting end colostomy. DESCRIPTION OF PROCEDURE: The patient was brought into the operating room after induction of endotr acheal anesthesia in a supine position. Her chest, abdomen and pelvis were prepped with chlorhexidi ne and draped sterilely. A time-out procedure was then performed according to the institutional sta ndards. Invanz was given IV prior to surgical starting and the surgery commenced. Initially, the r ight port is taken out by making an incision over the previously incised area, excising the port und er sharp dissection and then closing the incision in 2 layered fashion using 4-0 Vicryl. The patien t was then placed in lithotomy position and laparotomy is made. Extensive lysis of adhesions were r equired to re-enter the abdomen and the small bowel interloop adhesions were taken down with sharp d issection. The rectal stump was identified with 2 Prolene sutures at the lateral aspects of the rec ever. Two ovarian cysts were identified and aspirated. The colocolostomy was then brought into the field of dissection. Circumferential dissection in the abdomen is performed and then the colostomy was taken down from the outside at the skin level. It is passed through the fascia and after adequa te mobilization laterally, there was not enough colon to reach the pelvis, therefore, splenic flexur e takedown was then performed. The colon was sized with an EEA stapler. A 29 stapler was used to p erform the anastomosis. The proximal colon is then pursestringed around the anvil and an end-to-end anastomosis performed after mobilization of the peritoneal reflection of the rectum to allow the st apler to make the turn. Airtight anastomosis was found. Hemostasis was assured. The bowel was run . No signs of enterotomies or any other injuries and a single serosal tear was reapproximated using 3-0 Polysorb suture. The dense adhesions that were noted through the anterior abdominal wall and t o the sidewall were all taken down in just under 3 hours, but this was fairly extensive and required tedious careful dissection. After insuring hemostasis, needle, instrument and sponge counts were v erified to be correct. The abdomen was closed using 0 PDS for the anterior and posterior aspects of the colostomy site and a running 0 PDS suture for the fascia of the midline laparotomy. Irrigation was done with saline and the skin was reapproximated using clips. Dressing was applied. The patie nt was awakened, taken to the recovery room in stable condition. No immediate complications. COMPLICATIONS: There were no complications. FLUID GIVEN: Given 1.5 L of crystalloid. URINE OUTPUT: Greater than 1 cc/kilo per hour. /[id number]/MODL
[2016-10-12] MEDS: FERROUS SULFATE 325 MG TAB PO SCH (10:11)
[2016-10-12] MEDS: GABAPENTIN 300 MG CAP PO SCH ×3 (10:11→22:53)
--- NOTE | 2016-10-12 14:39 | SOAPPROG ---
SOAP Progress Note Assessment/Plan: Assessment/Plan: POD#1 s/p colostomy reversal OOB ambulatory Tolerating clears Acute blood loss anemia Voided post frank removal RRR CTA Abd soft incisions dressing intact, ostomy site with serosang staining No edema Doing well No tachycardia/hypotension (signs of leak/decompensation Await return of bowel function Advance diet and activity as able 10/12/16 14:36 Objective: Vital Signs Temp Pulse Resp BP Pulse Ox 37.0 C 80 16 105/66 99 10/12/16 08:00 10/12/16 11:51 10/12/16 11:51 10/12/16 11:51 10/12/16 11:51 Laboratory Results 10/12/16 04:58 10/12/16 04:58 10/11/16 10/12/16 10/13/16 05:59 05:59 05:59 Intake Total 3495 Output Total 1950 400 Balance 1545 -400 ICD10 Worksheet Patient Problems: Problems Problem Status Onset Acute lower GI bleeding Acute Anemia Acute Colon obstruction Acute Lesion of colon Acute
[2016-10-12] MEDS: D5W 1/2 NS W/ 20 KCl/L 1,000 ML IV SCH (17:56)
[2016-10-13] MEDS: KETOROLAC 15 MG/1 ML SDV IVP SCH ×3 (06:07→18:03)
[2016-10-13] MEDS: FERROUS SULFATE 325 MG TAB PO SCH (08:26)
[2016-10-13] MEDS: GABAPENTIN 300 MG CAP PO SCH ×3 (08:26→21:20)
--- NOTE | 2016-10-13 22:52 | SOAPPROG ---
SOAP Progress Note Assessment/Plan: Assessment/Plan: POD#1 s/p colostomy reversal OOB ambulatory Tolerating clears Acute blood loss anemia +flatus RRR CTA Abd soft incisions dressing intact, ostomy site with serosang staining No edema Doing well No tachycardia/hypotension (signs of leak/decompensation) Await return of bowel function Advance diet to fulls and activity as able cbc in am 10/12/16 14:36 10/13/16 22:51 Objective: Vital Signs Temp Pulse Resp BP Pulse Ox 36.7 C 89 16 108/68 98 10/13/16 15:32 10/13/16 15:32 10/13/16 15:32 10/13/16 15:32 10/13/16 15:32 Laboratory Results 10/12/16 04:58 10/12/16 04:58 10/12/16 10/13/16 10/14/16 05:59 05:59 05:59 Intake Total 3495 1420 220 Output Total 1950 1999 Balance 1545 -580 220 ICD10 Worksheet Patient Problems: Problems Problem Status Onset Acute lower GI bleeding Acute Anemia Acute Colon obstruction Acute Lesion of colon Acute
[2016-10-14] MEDS: KETOROLAC 15 MG/1 ML SDV IVP SCH ×4 (01:10→18:14)
[2016-10-14 05:01] LABS: MEAN CELL HEMOGLOBIN 34.8 pg (27.9-34.1); MEAN CELL HEMOGLOBIN CONCENTR. 33.3 g/dL (32.4-36.7); MEAN CELL VOLUME 104.5 fL (81.5-99.8); RED BLOOD CELL COUNT 1.55 10^6/uL (4.18-5.33); RED CELL DISTRIBUTION WIDTH 14.6 % (11.5-15.2)
[2016-10-14 05:36] LABS: HEMATOCRIT 16.2 % (38.0-47.0); HEMOGLOBIN 5.4 g/dL (12.6-16.3)
[2016-10-14 06:57] LABS: HEMOGLOBIN 5.5 g/dL (12.6-16.3)
[2016-10-14] MEDS: FERROUS SULFATE 325 MG TAB PO SCH (09:09)
[2016-10-14] MEDS: GABAPENTIN 300 MG CAP PO SCH ×3 (09:09→21:54)
--- NOTE | 2016-10-14 17:12 | SOAPPROG ---
SOAP Progress Note Assessment/Plan: Assessment/Plan: POD#3 s/p colostomy reversal OOB ambulatory Tolerating clears Acute blood loss anemia +flatus/stool water RRR CTA Abd soft incisions dressing intact, ostomy site with serosang staining No edema Doing well Acute blood loss anemia. No clinical indication for transfusion Advance diet to regular Anticipate D/C 10/1510/14/16 17:11 Objective: Vital Signs Temp Pulse Resp BP Pulse Ox 37.0 C 85 14 114/82 H 99 10/14/16 15:24 10/14/16 15:24 10/14/16 15:24 10/14/16 15:24 10/14/16 15:24 Laboratory Results 10/14/16 06:10 10/12/16 04:58 10/13/16 10/14/16 10/15/16 05:59 05:59 05:59 Intake Total 1420 220 Output Total 1999 Balance -580 220 ICD10 Worksheet Patient Problems: Problems Problem Status Onset Acute lower GI bleeding Acute Anemia Acute Colon obstruction Acute Lesion of colon Acute
[2016-10-14 22:47] VITALS: O2SAT 97
[2016-10-15] MEDS: KETOROLAC 15 MG/1 ML SDV IVP SCH ×2 (00:41→04:46)
[2016-10-15] MEDS: GABAPENTIN 300 MG CAP PO SCH (07:49)
[2016-10-15] MEDS: FERROUS SULFATE 325 MG TAB PO SCH (07:49)
[2016-10-15 08:26] VITALS: BP 109/75; PULSE 89; RESP 14; TEMP 98.5
--- NOTE | 2016-10-15 13:13 | GDS ---
[f rep st] DISCHARGE SUMMARY This is a 46-year-old who presented to the hospital for reversal of colostomy. Her principal diagnosis was colon cancer. She had additional diagnoses of hypertension, anemia, and neuropathy. HOSPITAL COURSE: The patient came into the hospital for elective reversal of colostomy and port-a-cath removal on 10/11/2016, discharge date 10/15/2016. The patient came in on her regular medications, underwent colostomy reversal. Extensive lysis of adhesions was required. The patient had a postoperative ileus that resolved quickly. She did have blood loss anemia while in the hospital, which was treated with supportive fluid hydration. The patient did well postoperatively, tolerated a diet, passing bowel . Incisions clean and dry without signs of acute wound infection. Patient was discharged to home on her home medications of gabapentin 300 mg 3 t.i.d., naproxen sodium 450 mg daily, and ferrous sulfate 325 mg daily. The patient will follow up in 7-10 days for staple removal. Copy requested to: Dr. Forrester [facility] Primary Care Physician /[id number]/MODL [email or web address]
== END 2016-10-15 11:57 | disposition home or self-care (01) | DRG 346 ==
LOC: F3E 10:16
PROVIDERS: ADMIT Surgery; ATTEND Surgery
DX: Z43.3 Encounter for attention to colostomy (principal); I10 Essential (primary) hypertension; D64.9 Anemia, unspecified; G62.9 Polyneuropathy, unspecified; Z85.038 Personal history of other malignant neoplasm of large intestine
CPT/HCPCS: J1100; J1170; J1335; J1885; J2405; J2704; J3010

== ENCOUNTER → 2017-05-09 | Outpatient (CLI) | payer BC ==
[~2017-05-09] MED LIST: GADOBUTROL 10 ML VIAL IVP ONE
== END ==
LOC: FIMAGING 07:00
PROVIDERS: ATTEND Internal Medicine Hematology & Oncology
DX: C18.7 Malignant neoplasm of sigmoid colon (principal); C78.6 Secondary malignant neoplasm of retroperitoneum and peritoneum
CPT/HCPCS: A9585

== ENCOUNTER → 2017-06-07 | Outpatient (CLI) | payer BC | LOC: FIMAGING 12:21 | PROVIDERS: ATTEND Surgery | DX: Z12.31 Encounter for screening mammogram for malignant neoplasm of breast (principal); R92.8 Other abnormal and inconclusive findings on diagnostic imaging of breast ==

== ENCOUNTER → 2018-02-21 | Outpatient (CLI) | payer BC | LOC: FIMAGING 08:40 | PROVIDERS: ATTEND Family Medicine | DX: Z12.31 Encounter for screening mammogram for malignant neoplasm of breast (principal) ==

== ENCOUNTER → 2018-06-01 | Outpatient (CLI) | payer BC | LOC: FIMAGING 06:20 | PROVIDERS: ATTEND Internal Medicine Hematology & Oncology | DX: R18.0 Malignant ascites (principal); K63.89 Other specified diseases of intestine; R19.09 Other intra-abdominal and pelvic swelling, mass and lump; C22.9 Malignant neoplasm of liver, not specified as primary or secondary; C18.7 Malignant neoplasm of sigmoid colon; R16.1 Splenomegaly, not elsewhere classified; Z91.041 Radiographic dye allergy status | CPT/HCPCS: A9585 ==

== ENCOUNTER → 2018-08-10 | Outpatient (CLI) | payer BC ==
[~2018-08-10] MED LIST changes: +ACETAMINOPHEN 325 MG TAB PO ONE; -GADOBUTROL 10 ML VIAL IVP ONE; +diphenhydrAMINE 25 MG CAP PO ONE
== END ==
LOC: FOBOP 12:16
PROVIDERS: ATTEND Internal Medicine Hematology & Oncology
PROC: 30233N1 Transfusion of Nonautologous Red Blood Cells into Peripheral Vein, Percutaneous Approach (ICD-10-PCS; principal; 2018-08-10)
DX: C18.9 Malignant neoplasm of colon, unspecified (principal)
CPT/HCPCS: 36430; P9016; J1642

== ENCOUNTER → 2018-09-04 | Outpatient (CLI) | payer BC ==
[~2018-09-04] MED LIST changes: -ACETAMINOPHEN 325 MG TAB PO ONE; +GADOBUTROL 10 ML VIAL IVP ONE; -diphenhydrAMINE 25 MG CAP PO ONE
== END ==
LOC: FIMAGING 06:29
PROVIDERS: ATTEND Internal Medicine Hematology & Oncology
DX: C18.7 Malignant neoplasm of sigmoid colon (principal); C78.7 Secondary malignant neoplasm of liver and intrahepatic bile duct; K86.9 Disease of pancreas, unspecified; R16.1 Splenomegaly, not elsewhere classified
CPT/HCPCS: A9585; J1642

== ENCOUNTER → 2018-11-30 | Outpatient (CLI) | payer BC | LOC: FIMAGING 07:07 ==